=== PATIENT | male | born 1930 | race Caucasian/White ===

== ENCOUNTER 2016-12-29 08:56 | Inpatient (IN) | payer MEDICARE, OTHER ==
[~2016-12-29] VITALS: Ht 185.4 cm; Wt 71.9 kg
[~2016-12-29 08:56] MED LIST: ATEN-60 OR; DILT-11 OR; DILT120C45 OR; HYDR25TA4 OR; SIMV10TA73 OR
[2016-12-29 10:12] LABS: Basophils # (auto) 0 uL; Basophils % (auto) 0.2 % (0.0-2.0); CONDITION Y; Eosinophils # (auto) 0.1 uL; Eosinophils % (auto) 0.5 % (0.0-7.0); Hematocrit 36.7 % (41.0-53.0); Hemoglobin 12.4 g/dL (13.5-17.5); Lymphocytes # (auto) 0.5 uL; Lymphocytes % (auto) 4.6 % (10.0-50.0); Mean Corpuscular Hemoglobin 33.3 pg (28.0-32.0); Mean Corpuscular Hgb Conc. 33.7 g/dL (32.0-36.0); Mean Corpuscular Volume 98.8 fL (80.0-100.0); Mean Platelet Volume 6.8 fL (7.4-10.4); Monocytes # (auto) 0.6 uL; Monocytes % (auto) 6.1 % (0.0-12.0); Neutrophils % (auto) 88.6 % (37.0-80.0); Platelet Count (auto) 221 10^3/uL (140-450); Red Cell Distribution Width 15.6 % (11.6-16.0); White Blood Cell 10.1 10^3/uL (4.4-10.8)
[2016-12-29 10:27] LABS: Albumin 2.4 g/dL (3.4-5.0); BUN/Creatinine Ratio 21.2; Calcium 8.6 mg/dL (8.5-10.1)
[2016-12-29] MEDS ORDERED: SODIUM CHLORIDE 0.9% 1,000 ML IVB ONE (10:31)
[2016-12-29 10:32] LABS: Bilirubin, Total 0.6 mg/dL (0.2-1.0); Total Protein 6.4 g/dL (6.4-8.2)
[2016-12-29 11:30] LABS: Magnesium 2.3 mg/dL (1.6-2.6)
[2016-12-29 11:38] LABS: Lactic Acid w/Reflex 2.2 mmol/L (0.4-2.0)
[2016-12-29 12:00] LABS: REFLEX LACTIC ACID YES OR NO YES
[2016-12-29 12:06] LABS: INR 1.05 (0.9-1.15)
[2016-12-29] MEDS ORDERED: SODIUM CHLORIDE 0.9% 1,000 ML IV SCH ×2 (12:14→19:00)
[2016-12-29] MEDS ORDERED: LORazepam 2MG/ML-1ML VIAL IV PRN (12:15)
[2016-12-29] MEDS ORDERED: LEVETIRACETAM 500 MG TAB PO ONE (12:15)
[2016-12-29] MEDS ORDERED: HYDROcodone-ACET 5/325MG TAB PO PRN (12:15)
[2016-12-29] MEDS ORDERED: LACTULOSE 20Gm/30ML SOLN PO PRN ×2 (12:15)
[2016-12-29] MEDS ORDERED: SODIUM CHLORIDE 0.9% 1,000 ML IV ONE (12:15)
[2016-12-29] MEDS ORDERED: ACETAMINOPHEN 500 MG TAB PO PRN (12:15)
[2016-12-29] MEDS ORDERED: cefTRIAXone 1GM/50ML D5W 50 ML IV ONE ×4 (12:15→15:00)
[2016-12-29] MEDS ORDERED: NITROGLYCERIN 0.4 MG SL TAB SL PRN ×2 (12:15→14:00)
[2016-12-29] MEDS ORDERED: TEMAZEPAM 15 MG CAP PO PRN (12:15)
[2016-12-29] MEDS ORDERED: MORPHINE SULF INJ 2 MG/ML SYRINGE 1ML IV PRN ×3 (12:15→14:00)
[2016-12-29] MEDS ORDERED: ALBUTEROL SULF 2.5 MG/0.5ML(0.5%) NEB SOLN NEB PRN (12:15)
[2016-12-29] MEDS ORDERED: LORazepam 0.5 MG TAB PO PRN (12:15)
[2016-12-29] MEDS ORDERED: PROMETHAZINE HCL 25 MG/ML 1ML IV PRN (12:15)
[2016-12-29] MEDS ORDERED: AZITHROMYCIN 500MG/D5W 250ML 250 ML IV ONE ×2 (13:15→15:00)
[2016-12-29] MEDS ORDERED: ACETAMINOPHEN 325 MG TAB PO PRN (14:15)
[2016-12-29] MEDS ORDERED: ONDANSETRON HCL 4 MG/2 ML VIAL IV PRN (14:15)
[2016-12-29 14:27] VITALS: BP 113/69
[2016-12-29] MEDS ORDERED: LIDOCAINE 2% JELLY 11ml (GLYDO) ONE (14:35)
[2016-12-29] MEDS ORDERED: METOPROLOL SUCCINATE XL 50 MG TAB PO ONE (14:45)
[2016-12-29] MEDS ORDERED: ENOXAPARIN SOD 80 MG/0.8ML SYRINGE SC ONE (14:45)
[2016-12-29] MEDS ORDERED: PANTOPRAZOLE 40 MG TAB PO ONE (14:45)
[2016-12-29] MEDS ORDERED: ASPirin 81 mg TAB PO ONE (14:45)
[2016-12-29] MEDS: SODIUM CHLORIDE 0.9% 1,000 ML IV SCH (14:53)
[2016-12-29] MEDS ORDERED: LIDOCAINE 2% JELLY 11ml (GLYDO) UR ONE (15:00)
[2016-12-29] MEDS ORDERED: IOHEXOL 350 MG/ML 100ML IJ ONE (15:03)
[2016-12-29] MEDS ORDERED: ALBUTEROL SULF 2.5 MG/0.5ML(0.5%) NEB SOLN NEB SCH (18:00)
[2016-12-29] MEDS ORDERED: CARBIDOPA W LEVODOPA 25/100mg TABLET PO SCH (18:00)
[2016-12-29] MEDS: RIVAROXABAN 15 MG TAB PO SCH (19:25)
[2016-12-29 21:00] VITALS: BP 100/59
[2016-12-29 22:00] VITALS: BP 100/59
[2016-12-29] MEDS ORDERED: ATORVASTATIN 20 MG TAB PO SCH (22:00)
[2016-12-29] MEDS ORDERED: SIMVASTATIN 10 MG OR SCH (22:00)
[2016-12-29] MEDS ORDERED: CARVEDILOL 3.125 MG TAB PO SCH (22:00)
[2016-12-29] MEDS ORDERED: ENOXAPARIN SOD 80 MG/0.8ML SYRINGE SC SCH (22:00)
[2016-12-29] MEDS ORDERED: LEVETIRACETAM 500 MG TAB PO SCH (22:00)
[2016-12-29] MEDS: AMIODARONE HCL 200 MG TAB PO SCH (22:26)
[2016-12-29] MEDS: CARBIDOPA W LEVODOPA 25/100mg TABLET PO SCH (22:27)
[2016-12-29 23:05] LABS: Temperature: 23.7 C (20.0-25.0)
[2016-12-30] MEDS ORDERED: METO25TA62 PO (02:54)
[2016-12-30] MEDS: SODIUM CHLORIDE 0.9% 1,000 ML IV SCH ×2 (04:18→18:36)
[2016-12-30 05:00] VITALS: BP 109/70
[2016-12-30] MEDS: CARBIDOPA W LEVODOPA 25/100mg TABLET PO SCH ×3 (06:14→21:55)
[2016-12-30 06:48] LABS: Basophils # (auto) 0 uL; Basophils % (auto) 0.2 % (0.0-2.0); CONDITION Y; Eosinophils # (auto) 0.1 uL; Eosinophils % (auto) 1.3 % (0.0-7.0); Hematocrit 30.4 % (41.0-53.0); Hemoglobin 10.2 g/dL (13.5-17.5); Lymphocytes # (auto) 0.9 uL; Lymphocytes % (auto) 13.1 % (10.0-50.0); Mean Corpuscular Hemoglobin 33.4 pg (28.0-32.0); Mean Corpuscular Hgb Conc. 33.7 g/dL (32.0-36.0); Mean Corpuscular Volume 99.3 fL (80.0-100.0); Mean Platelet Volume 7.5 fL (7.4-10.4); Monocytes # (auto) 0.6 uL; Monocytes % (auto) 8.7 % (0.0-12.0); Neutrophils # (auto) 5.2 uL; Neutrophils % (auto) 76.7 % (37.0-80.0); Platelet Count (auto) 183 10^3/uL (140-450); Red Cell Distribution Width 15.9 % (11.6-16.0); White Blood Cell 6.7 10^3/uL (4.4-10.8)
[2016-12-30 07:17] LABS: BUN/Creatinine Ratio 22.8; Bilirubin, Total 0.3 mg/dL (0.2-1.0); Calcium 8.1 mg/dL (8.5-10.1); Potassium 4.6 mmol/L (3.5-5.1); Total Protein 5.6 g/dL (6.4-8.2)
[2016-12-30 08:29] LABS: Vitamin B12 400 pg/mL (211-911)
[2016-12-30] MEDS: cefTRIAXone 1GM/50ML D5W 50 ML IV SCH (08:57)
[2016-12-30] MEDS: RIVAROXABAN 15 MG TAB PO SCH ×2 (08:57→17:17)
[2016-12-30 09:00] VITALS: BP 117/69
[2016-12-30] MEDS ORDERED: cefTRIAXone 1GM/50ML D5W 50 ML IV SCH (09:00)
[2016-12-30] MEDS: PANTOPRAZOLE 40 MG TAB PO SCH (09:57)
[2016-12-30] MEDS: METOPROLOL SUCCINATE XL 50 MG TAB PO SCH (09:57)
[2016-12-30] MEDS: AMIODARONE HCL 200 MG TAB PO SCH ×2 (09:57→21:55)
[2016-12-30] MEDS ORDERED: PANTOPRAZOLE 40 MG TAB PO SCH (10:00)
[2016-12-30] MEDS ORDERED: ASPirin 81 mg TAB PO SCH ×2 (10:00)
[2016-12-30] MEDS ORDERED: AZITHROMYCIN 500MG/D5W 250ML 250 ML IV SCH (10:00)
[2016-12-30] MEDS ORDERED: ENOXAPARIN SOD 40 MG/0.4 ML SYRINGE SC SCH (10:00)
[2016-12-30 13:00] VITALS: BP 114/71
[2016-12-30 17:00] VITALS: BP 119/70
[2016-12-30 20:00] VITALS: BP 117/69
[2016-12-30 21:30] VITALS: BP 128/73
[2016-12-31 05:00] VITALS: BP 124/74
[2016-12-31 05:16] LABS: Basophils # (auto) 0 uL; Basophils % (auto) 0.3 % (0.0-2.0); CONDITION Y; Eosinophils # (auto) 0.1 uL; Eosinophils % (auto) 1.7 % (0.0-7.0); Hemoglobin 9.9 g/dL (13.5-17.5); Lymphocytes # (auto) 0.7 uL; Lymphocytes % (auto) 11.8 % (10.0-50.0); Mean Corpuscular Hgb Conc. 32.9 g/dL (32.0-36.0); Mean Corpuscular Volume 100.3 fL (80.0-100.0); Mean Platelet Volume 7.4 fL (7.4-10.4); Monocytes # (auto) 0.6 uL; Monocytes % (auto) 9.1 % (0.0-12.0); Neutrophils # (auto) 4.8 uL; Neutrophils % (auto) 77.1 % (37.0-80.0); Platelet Count (auto) 202 10^3/uL (140-450); Red Cell Distribution Width 15.8 % (11.6-16.0); White Blood Cell 6.3 10^3/uL (4.4-10.8)
[2016-12-31 05:50] LABS: Albumin 1.9 g/dL (3.4-5.0); Alkaline Phosphatase 88 U/L (45-117); Anion Gap 8 (5-15); Aspartate Aminotransferase 21 U/L (15-37); BUN/Creatinine Ratio 23.5; Bilirubin, Total 0.2 mg/dL (0.2-1.0); Blood Urea Nitrogen 19 mg/dL (7-18); Calcium 7.9 mg/dL (8.5-10.1); Carbon Dioxide 23 mmol/L (21-32); Chloride 106 mmol/L (98-107); GFR African American 116 mL/min; GFR Non-African American 96 mL/min; Glucose 89 mg/dL (74-106); Potassium 3.8 mmol/L (3.5-5.1); Sodium 137 mmol/L (136-145); Total Protein 5.3 g/dL (6.4-8.2)
[2016-12-31] MEDS: CARBIDOPA W LEVODOPA 25/100mg TABLET PO SCH ×3 (06:03→21:51)
[2016-12-31 09:00] VITALS: BP 116/68
[2016-12-31] MEDS: RASAGILINE MESYLATE 0.5 MG PO SCH (10:00)
[2016-12-31] MEDS ORDERED: AZILECT 0.5 MG PO SCH (10:00)
[2016-12-31] MEDS: RIVAROXABAN 15 MG TAB PO SCH ×2 (10:03→17:41)
[2016-12-31] MEDS: cefTRIAXone 1GM/50ML D5W 50 ML IV SCH (10:08)
[2016-12-31] MEDS: PANTOPRAZOLE 40 MG TAB PO SCH (10:09)
[2016-12-31] MEDS: AMIODARONE HCL 200 MG TAB PO SCH ×2 (10:09→21:52)
[2016-12-31] MEDS: METOPROLOL SUCCINATE XL 50 MG TAB PO SCH (10:11)
[2016-12-31 12:48] VITALS: BP 107/67
[2016-12-31] MEDS: SODIUM CHLORIDE 0.9% 1,000 ML IV SCH (15:00)
[2016-12-31 17:03] VITALS: BP 102/59
[2016-12-31 21:46] VITALS: BP 123/70
[2017-01-01 05:10] VITALS: BP 123/69
[2017-01-01 05:44] LABS: Basophils # (auto) 0 uL; Basophils % (auto) 0.5 % (0.0-2.0); CONDITION Y; Eosinophils # (auto) 0.1 uL; Eosinophils % (auto) 2.2 % (0.0-7.0); Hematocrit 28.6 % (41.0-53.0); Hemoglobin 9.4 g/dL (13.5-17.5); Lymphocytes # (auto) 0.8 uL; Lymphocytes % (auto) 14.9 % (10.0-50.0); Mean Corpuscular Volume 99.8 fL (80.0-100.0); Mean Platelet Volume 7.4 fL (7.4-10.4); Monocytes # (auto) 0.5 uL; Monocytes % (auto) 8.6 % (0.0-12.0); Neutrophils # (auto) 4.2 uL; Neutrophils % (auto) 73.8 % (37.0-80.0); Platelet Count (auto) 240 10^3/uL (140-450); Red Cell Distribution Width 15.7 % (11.6-16.0); White Blood Cell 5.7 10^3/uL (4.4-10.8)
[2017-01-01 05:54] LABS: Albumin 1.9 g/dL (3.4-5.0); Calcium 8.2 mg/dL (8.5-10.1); Potassium 4.2 mmol/L (3.5-5.1)
[2017-01-01 05:56] LABS: Bilirubin, Total 0.2 mg/dL (0.2-1.0); Total Protein 5.3 g/dL (6.4-8.2)
[2017-01-01] MEDS: CARBIDOPA W LEVODOPA 25/100mg TABLET PO SCH ×3 (06:26→21:45)
[2017-01-01 07:33] VITALS: BP_SYST 130; BP_SYST 139; BP_DIAS 65; BP_DIAS 70
[2017-01-01] MEDS: RIVAROXABAN 15 MG TAB PO SCH ×2 (08:40→17:49)
[2017-01-01] MEDS: cefTRIAXone 1GM/50ML D5W 50 ML IV SCH (08:41)
[2017-01-01] MEDS: RASAGILINE MESYLATE 0.5 MG PO SCH (10:00)
[2017-01-01] MEDS: PANTOPRAZOLE 40 MG TAB PO SCH (10:08)
[2017-01-01] MEDS: METOPROLOL SUCCINATE XL 50 MG TAB PO SCH (10:09)
[2017-01-01] MEDS: AMIODARONE HCL 200 MG TAB PO SCH ×2 (10:09→21:45)
[2017-01-01 11:46] VITALS: BP 104/51
[2017-01-01 17:00] VITALS: BP 112/63
[2017-01-01 22:18] VITALS: BP 100/53
[2017-01-02 05:32] VITALS: BP 123/65
[2017-01-02 05:45] LABS: Basophils # (auto) 0 uL; Basophils % (auto) 0.6 % (0.0-2.0); CONDITION Y; Eosinophils # (auto) 0.1 uL; Hematocrit 26.9 % (41.0-53.0); Hemoglobin 9.1 g/dL (13.5-17.5); Lymphocytes # (auto) 0.7 uL; Lymphocytes % (auto) 11.3 % (10.0-50.0); Mean Corpuscular Hemoglobin 33.1 pg (28.0-32.0); Mean Corpuscular Hgb Conc. 33.6 g/dL (32.0-36.0); Mean Corpuscular Volume 98.6 fL (80.0-100.0); Mean Platelet Volume 7.2 fL (7.4-10.4); Monocytes # (auto) 0.6 uL; Monocytes % (auto) 9.2 % (0.0-12.0); Neutrophils # (auto) 4.8 uL; Neutrophils % (auto) 76.9 % (37.0-80.0); Platelet Count (auto) 307 10^3/uL (140-450); Red Cell Distribution Width 15.5 % (11.6-16.0); White Blood Cell 6.2 10^3/uL (4.4-10.8)
[2017-01-02] MEDS: CARBIDOPA W LEVODOPA 25/100mg TABLET PO SCH ×3 (05:57→21:39)
[2017-01-02 06:04] LABS: BUN/Creatinine Ratio 17.8; Calcium 7.8 mg/dL (8.5-10.1); Potassium 4.1 mmol/L (3.5-5.1)
[2017-01-02 08:00] VITALS: BP 117/61
[2017-01-02] MEDS: cefTRIAXone 1GM/50ML D5W 50 ML IV SCH (08:36)
[2017-01-02] MEDS: RIVAROXABAN 15 MG TAB PO SCH ×2 (08:36→18:11)
[2017-01-02] MEDS: PANTOPRAZOLE 40 MG TAB PO SCH (09:44)
[2017-01-02] MEDS: AMIODARONE HCL 200 MG TAB PO SCH ×2 (09:44→21:39)
[2017-01-02] MEDS: METOPROLOL SUCCINATE XL 50 MG TAB PO SCH (09:45)
[2017-01-02] MEDS: RASAGILINE MESYLATE 0.5 MG PO SCH (10:00)
[2017-01-02 12:00] VITALS: BP 90/59
[2017-01-02 16:59] VITALS: BP 126/64
[2017-01-02 22:00] VITALS: BP 114/60
[2017-01-03 05:00] VITALS: BP 111/64
[2017-01-03 05:31] LABS: Basophils # (auto) 0 uL; Basophils % (auto) 0.4 % (0.0-2.0); CONDITION Y; Eosinophils # (auto) 0.2 uL; Eosinophils % (auto) 3.5 % (0.0-7.0); Hemoglobin 8.5 g/dL (13.5-17.5); Lymphocytes % (auto) 16.7 % (10.0-50.0); Mean Corpuscular Hemoglobin 33.5 pg (28.0-32.0); Mean Corpuscular Volume 98.3 fL (80.0-100.0); Mean Platelet Volume 6.7 fL (7.4-10.4); Monocytes # (auto) 0.5 uL; Monocytes % (auto) 8.3 % (0.0-12.0); Neutrophils # (auto) 4.3 uL; Neutrophils % (auto) 71.1 % (37.0-80.0); Platelet Count (auto) 375 10^3/uL (140-450); Red Cell Distribution Width 15.1 % (11.6-16.0)
[2017-01-03 05:48] LABS: Albumin 2.1 g/dL (3.4-5.0); Calcium 8.3 mg/dL (8.5-10.1); Potassium 4.3 mmol/L (3.5-5.1)
[2017-01-03 05:50] LABS: BUN/Creatinine Ratio 21.8
[2017-01-03 05:52] LABS: Bilirubin, Total 0.2 mg/dL (0.2-1.0); Total Protein 5.6 g/dL (6.4-8.2)
[2017-01-03] MEDS: CARBIDOPA W LEVODOPA 25/100mg TABLET PO SCH ×3 (05:54→22:35)
[2017-01-03 08:00] VITALS: BP 112/62
[2017-01-03] MEDS: cefTRIAXone 1GM/50ML D5W 50 ML IV SCH (08:09)
[2017-01-03] MEDS: RIVAROXABAN 15 MG TAB PO SCH ×2 (08:09→18:22)
[2017-01-03 08:10] VITALS: BP 112/60
[2017-01-03] MEDS: RASAGILINE MESYLATE 0.5 MG PO SCH (10:00)
[2017-01-03] MEDS: METOPROLOL SUCCINATE XL 50 MG TAB PO SCH (10:10)
[2017-01-03] MEDS: AMIODARONE HCL 200 MG TAB PO SCH ×2 (10:10→22:35)
[2017-01-03] MEDS: PANTOPRAZOLE 40 MG TAB PO SCH (10:10)
[2017-01-03] MEDS: SODIUM CHLORIDE 0.9% IR SCH ×3 (11:57→14:24)
[2017-01-03] MEDS: AMINOCAPROIC ACID IR SCH ×3 (11:57→14:24)
[2017-01-03 12:35] VITALS: BP 110/63
[2017-01-03 15:57] VITALS: BP 106/64
[2017-01-03 22:00] VITALS: BP 116/64
[2017-01-04] VITALS (14 sets, daily range): BP systolic 93–123; BP diastolic 47–64
[2017-01-04] MEDS: CARBIDOPA W LEVODOPA 25/100mg TABLET PO SCH ×3 (06:01→22:35)
[2017-01-04 06:28] LABS: Basophils # (auto) 0 uL; Basophils % (auto) 0.7 % (0.0-2.0); CONDITION Y; DEFINITIVE SEE PRINTOUT; Eosinophils # (auto) 0.3 uL; Eosinophils % (auto) 4.3 % (0.0-7.0); Hematocrit 20.8 % (41.0-53.0); Hemoglobin 7.2 g/dL (13.5-17.5); Lymphocytes # (auto) 0.9 uL; Lymphocytes % (auto) 13.6 % (10.0-50.0); Mean Corpuscular Hemoglobin 33.7 pg (28.0-32.0); Mean Corpuscular Hgb Conc. 34.4 g/dL (32.0-36.0); Mean Platelet Volume 6.6 fL (7.4-10.4); Monocytes # (auto) 0.6 uL; Monocytes % (auto) 8.6 % (0.0-12.0); Neutrophils # (auto) 4.8 uL; Neutrophils % (auto) 72.8 % (37.0-80.0); Platelet Count (auto) 379 10^3/uL (140-450); Red Cell Distribution Width 15.1 % (11.6-16.0); White Blood Cell 6.6 10^3/uL (4.4-10.8)
[2017-01-04 06:56] LABS: Albumin 2.1 g/dL (3.4-5.0); Calcium 8.4 mg/dL (8.5-10.1); Potassium 4.1 mmol/L (3.5-5.1)
[2017-01-04 06:58] LABS: BUN/Creatinine Ratio 29.5
[2017-01-04 07:01] LABS: Bilirubin, Total 0.2 mg/dL (0.2-1.0); Total Protein 5.3 g/dL (6.4-8.2)
[2017-01-04] MEDS: RIVAROXABAN 15 MG TAB PO SCH (08:30)
[2017-01-04] MEDS: RASAGILINE MESYLATE 0.5 MG PO SCH (10:00)
[2017-01-04] MEDS: AMINOCAPROIC ACID IR SCH ×9 (10:04→22:35)
[2017-01-04] MEDS: SODIUM CHLORIDE 0.9% IR SCH ×9 (10:04→22:35)
[2017-01-04] MEDS: PANTOPRAZOLE 40 MG TAB PO SCH (10:17)
[2017-01-04] MEDS: FINASTERIDE 5 MG TAB PO SCH (10:17)
[2017-01-04] MEDS: AMIODARONE HCL 200 MG TAB PO SCH ×2 (10:17→22:35)
[2017-01-04] MEDS: METOPROLOL SUCCINATE XL 50 MG TAB PO SCH (10:18)
[2017-01-04] MEDS ORDERED: HEPARIN DRIP/D5W 100UNITS/ML 250 ML IV SCH (11:10)
[2017-01-04] MEDS ORDERED: HEPARIN SODIUM (PORCINE) 5000 UNITS/ML 1ML VIAL IV ONE (11:15)
[2017-01-04] MEDS ORDERED: FUROSEMIDE 20 MG/2 ML VIAL IV ONE (12:00)
[2017-01-04 12:34] LABS: INR 1.49 (0.9-1.15); Partial Thromboplastin Time 36.6 sec (22.64-33.71); Prothrombin Time 16.3 sec (9.37-12.3)
[2017-01-04] MEDS ORDERED: MULTIPLE VITAMIN TAB PO ONE (13:30)
[2017-01-04] MEDS ORDERED: ASCORBIC ACID 500 MG TAB PO ONE (13:30)
[2017-01-04] MEDS: PRO-STAT 64 30ML PO SCH (18:11)
[2017-01-04] MEDS: ASCORBIC ACID 500 MG TAB PO SCH (22:35)
[2017-01-05] VITALS (7 sets, daily range): BP systolic 101–117; BP diastolic 50–70
[2017-01-05] MEDS: SODIUM CHLORIDE 0.9% IR SCH ×17 (01:30→21:32)
[2017-01-05] MEDS: AMINOCAPROIC ACID IR SCH ×17 (01:30→21:32)
[2017-01-05 05:56] LABS: Albumin 2.1 g/dL (3.4-5.0); Calcium 8.1 mg/dL (8.5-10.1); Potassium 3.9 mmol/L (3.5-5.1)
[2017-01-05 05:59] LABS: BUN/Creatinine Ratio 31.5; Basophils # (auto) 0 uL; Basophils % (auto) 0.7 % (0.0-2.0); CONDITION Y; Eosinophils # (auto) 0.2 uL; Eosinophils % (auto) 3.4 % (0.0-7.0); Hematocrit 24.5 % (41.0-53.0); Hemoglobin 8.5 g/dL (13.5-17.5); Lymphocytes % (auto) 16.7 % (10.0-50.0); Mean Corpuscular Hemoglobin 32.2 pg (28.0-32.0); Mean Corpuscular Hgb Conc. 34.7 g/dL (32.0-36.0); Mean Corpuscular Volume 93.1 fL (80.0-100.0); Mean Platelet Volume 7.1 fL (7.4-10.4); Monocytes # (auto) 0.5 uL; Monocytes % (auto) 8.3 % (0.0-12.0); Neutrophils # (auto) 4.1 uL; Neutrophils % (auto) 70.9 % (37.0-80.0); Platelet Count (auto) 386 10^3/uL (140-450); Red Cell Distribution Width 16.8 % (11.6-16.0); White Blood Cell 5.8 10^3/uL (4.4-10.8)
[2017-01-05 06:01] LABS: Bilirubin, Total 0.4 mg/dL (0.2-1.0); INR 1.14 (0.9-1.15); Prothrombin Time 12.4 sec (9.37-12.3); Total Protein 5.3 g/dL (6.4-8.2)
[2017-01-05 06:20] LABS: Partial Thromboplastin Time 73.1 sec (22.64-33.71)
[2017-01-05] MEDS ORDERED: HEPARIN DRIP/D5W 100UNITS/ML 250 ML IV SCH (06:30)
[2017-01-05] MEDS: CARBIDOPA W LEVODOPA 25/100mg TABLET PO SCH ×3 (06:32→22:04)
[2017-01-05] MEDS: PRO-STAT 64 30ML PO SCH ×2 (08:16→17:40)
[2017-01-05] MEDS: ASCORBIC ACID 500 MG TAB PO SCH ×2 (09:15→22:04)
[2017-01-05] MEDS: PANTOPRAZOLE 40 MG TAB PO SCH (09:15)
[2017-01-05] MEDS: AMIODARONE HCL 200 MG TAB PO SCH ×2 (09:16→22:04)
[2017-01-05] MEDS: MULTIPLE VITAMIN TAB PO SCH (09:16)
[2017-01-05] MEDS: METOPROLOL SUCCINATE XL 50 MG TAB PO SCH (09:17)
[2017-01-05] MEDS: FINASTERIDE 5 MG TAB PO SCH (09:17)
[2017-01-05] MEDS: RASAGILINE MESYLATE 0.5 MG PO SCH (09:21)
[2017-01-05 11:26] LABS: INR 1.12 (0.9-1.15); Partial Thromboplastin Time 63.9 sec (22.64-33.71); Prothrombin Time 12.2 sec (9.37-12.3)
[2017-01-05] MEDS: Boost Glucose Control 8 Ounces PO SCH (17:40)
[2017-01-05 18:59] LABS: INR 1.01 (0.9-1.15); Partial Thromboplastin Time 59.9 sec (22.64-33.71)
[2017-01-05] MEDS ORDERED: DOCUSATE SOD 100 MG CAP PO ONE (20:15)
[2017-01-06] VITALS (13 sets, daily range): BP systolic 101–123; BP diastolic 44–64
[2017-01-06] MEDS: SODIUM CHLORIDE 0.9% IR SCH ×8 (00:13→14:58)
[2017-01-06] MEDS: AMINOCAPROIC ACID IR SCH ×15 (00:13→23:00)
[2017-01-06] MEDS: CARBIDOPA W LEVODOPA 25/100mg TABLET PO SCH ×3 (06:07→21:00)
[2017-01-06 06:15] LABS: Basophils # (auto) 0.1 uL; CONDITION Y; DEFINITIVE SEE PRINTOUT; Eosinophils # (auto) 0.2 uL; Eosinophils % (auto) 3.3 % (0.0-7.0); Hematocrit 19.9 % (41.0-53.0); Lymphocytes # (auto) 1.2 uL; Lymphocytes % (auto) 18.3 % (10.0-50.0); Mean Corpuscular Hemoglobin 32.2 pg (28.0-32.0); Mean Corpuscular Hgb Conc. 33.6 g/dL (32.0-36.0); Mean Corpuscular Volume 95.8 fL (80.0-100.0); Mean Platelet Volume 7.2 fL (7.4-10.4); Monocytes # (auto) 0.5 uL; Monocytes % (auto) 8.1 % (0.0-12.0); Neutrophils # (auto) 4.4 uL; Neutrophils % (auto) 69.3 % (37.0-80.0); Platelet Count (auto) 380 10^3/uL (140-450); Red Cell Distribution Width 16.5 % (11.6-16.0); White Blood Cell 6.4 10^3/uL (4.4-10.8)
[2017-01-06 06:25] LABS: INR 0.99 (0.9-1.15); Partial Thromboplastin Time 66.3 sec (22.64-33.71); Prothrombin Time 10.8 sec (9.37-12.3)
[2017-01-06 06:39] LABS: Hemoglobin 6.7 g/dL (13.5-17.5)
[2017-01-06 06:43] LABS: Albumin 2.1 g/dL (3.4-5.0); Calcium 8.1 mg/dL (8.5-10.1); Potassium 3.9 mmol/L (3.5-5.1)
[2017-01-06 06:50] LABS: BUN/Creatinine Ratio 27.5; Bilirubin, Total 0.2 mg/dL (0.2-1.0)
[2017-01-06] MEDS: METOPROLOL SUCCINATE XL 50 MG TAB PO SCH (10:00)
[2017-01-06] MEDS: RASAGILINE MESYLATE 0.5 MG PO SCH (10:00)
[2017-01-06] MEDS: DOCUSATE SOD 100 MG CAP PO SCH ×2 (10:18→20:58)
[2017-01-06] MEDS: AMIODARONE HCL 200 MG TAB PO SCH ×2 (10:18→21:00)
[2017-01-06] MEDS: ASCORBIC ACID 500 MG TAB PO SCH ×2 (10:18→21:00)
[2017-01-06] MEDS: MULTIPLE VITAMIN TAB PO SCH (10:19)
[2017-01-06] MEDS: PANTOPRAZOLE 40 MG TAB PO SCH (10:19)
[2017-01-06] MEDS: FINASTERIDE 5 MG TAB PO SCH (10:19)
[2017-01-06] MEDS: Boost Glucose Control 8 Ounces PO SCH ×2 (10:25→18:24)
[2017-01-06] MEDS: PRO-STAT 64 30ML PO SCH ×2 (10:25→18:24)
[2017-01-06] MEDS: SODIUM CHLORIDE IRRIGATION IR SCH ×7 (14:59→23:00)
[2017-01-06] MEDS: HEPARIN DRIP/D5W 100UNITS/ML 250 ML IV SCH (21:00)
[2017-01-07] MEDS: SODIUM CHLORIDE IRRIGATION IR SCH ×12 (01:00→23:00)
[2017-01-07] MEDS: AMINOCAPROIC ACID IR SCH ×12 (01:00→23:00)
[2017-01-07 05:14] VITALS: BP 121/59
[2017-01-07 06:14] LABS: Basophils # (auto) 0.1 uL; Basophils % (auto) 0.8 % (0.0-2.0); CONDITION Y; Eosinophils # (auto) 0.2 uL; Eosinophils % (auto) 3.2 % (0.0-7.0); Hematocrit 25.2 % (41.0-53.0); Hemoglobin 8.6 g/dL (13.5-17.5); Lymphocytes # (auto) 1.3 uL; Lymphocytes % (auto) 20.5 % (10.0-50.0); Mean Corpuscular Hemoglobin 31.5 pg (28.0-32.0); Mean Corpuscular Hgb Conc. 33.9 g/dL (32.0-36.0); Mean Corpuscular Volume 92.7 fL (80.0-100.0); Mean Platelet Volume 7.3 fL (7.4-10.4); Monocytes # (auto) 0.5 uL; Monocytes % (auto) 8.4 % (0.0-12.0); Neutrophils # (auto) 4.2 uL; Neutrophils % (auto) 67.1 % (37.0-80.0); Platelet Count (auto) 378 10^3/uL (140-450); Red Cell Distribution Width 15.9 % (11.6-16.0); White Blood Cell 6.3 10^3/uL (4.4-10.8)
[2017-01-07 06:17] LABS: INR 0.98 (0.9-1.15); Partial Thromboplastin Time 49.4 sec (22.64-33.71); Prothrombin Time 10.7 sec (9.37-12.3)
[2017-01-07] MEDS: CARBIDOPA W LEVODOPA 25/100mg TABLET PO SCH ×3 (06:24→21:30)
[2017-01-07 06:43] LABS: Albumin 2.1 g/dL (3.4-5.0); BUN/Creatinine Ratio 28.7
[2017-01-07 06:45] LABS: Bilirubin, Total 0.5 mg/dL (0.2-1.0); Total Protein 5.1 g/dL (6.4-8.2)
[2017-01-07 07:30] VITALS: BP 103/52
[2017-01-07 08:25] VITALS: BP 107/53
[2017-01-07] MEDS: METOPROLOL SUCCINATE XL 50 MG TAB PO SCH (09:06)
[2017-01-07] MEDS: FINASTERIDE 5 MG TAB PO SCH (09:07)
[2017-01-07] MEDS: PANTOPRAZOLE 40 MG TAB PO SCH (09:07)
[2017-01-07] MEDS: MULTIPLE VITAMIN TAB PO SCH (09:07)
[2017-01-07] MEDS: ASCORBIC ACID 500 MG TAB PO SCH ×2 (09:07→21:30)
[2017-01-07] MEDS: AMIODARONE HCL 200 MG TAB PO SCH ×3 (09:07→21:32)
[2017-01-07] MEDS: Boost Glucose Control 8 Ounces PO SCH ×2 (09:08→17:31)
[2017-01-07] MEDS: DOCUSATE SOD 100 MG CAP PO SCH ×2 (09:08→21:32)
[2017-01-07] MEDS: PRO-STAT 64 30ML PO SCH ×2 (09:08→17:31)
[2017-01-07] MEDS: RASAGILINE MESYLATE 0.5 MG PO SCH (10:00)
[2017-01-07] MEDS ORDERED: [UNRECOGNIZED DRUG - OTHER] BLADIN SCH (11:00)
[2017-01-07 11:24] LABS: INR 0.96 (0.9-1.15); Partial Thromboplastin Time 31.5 sec (22.64-33.71); Prothrombin Time 10.5 sec (9.37-12.3)
[2017-01-07 12:30] VITALS: BP 107/58
[2017-01-07] MEDS: HEPARIN DRIP/D5W 100UNITS/ML 250 ML IV SCH (17:16)
[2017-01-07] MEDS ORDERED: HEPARIN SODIUM (PORCINE) 5000 UNITS/ML 1ML VIAL IV ONE (19:45)
[2017-01-07 21:14] VITALS: BP 111/58
[2017-01-08] MEDS: SODIUM CHLORIDE IRRIGATION IR SCH ×11 (01:00→23:10)
[2017-01-08] MEDS: AMINOCAPROIC ACID IR SCH ×11 (01:00→23:10)
[2017-01-08 05:16] VITALS: BP 100/54
[2017-01-08] MEDS: CARBIDOPA W LEVODOPA 25/100mg TABLET PO SCH ×3 (06:45→21:24)
[2017-01-08 06:51] LABS: Basophils # (auto) 0 uL; Basophils % (auto) 0.5 % (0.0-2.0); CONDITION Y; Eosinophils # (auto) 0.2 uL; Eosinophils % (auto) 2.4 % (0.0-7.0); Hematocrit 24.8 % (41.0-53.0); Hemoglobin 8.5 g/dL (13.5-17.5); Lymphocytes % (auto) 11.8 % (10.0-50.0); Mean Corpuscular Hemoglobin 32.1 pg (28.0-32.0); Mean Corpuscular Hgb Conc. 34.4 g/dL (32.0-36.0); Mean Corpuscular Volume 93.3 fL (80.0-100.0); Mean Platelet Volume 6.9 fL (7.4-10.4); Monocytes # (auto) 0.6 uL; Neutrophils # (auto) 6.7 uL; Neutrophils % (auto) 78.3 % (37.0-80.0); Platelet Count (auto) 426 10^3/uL (140-450); Red Cell Distribution Width 15.9 % (11.6-16.0); White Blood Cell 8.5 10^3/uL (4.4-10.8)
[2017-01-08 07:04] LABS: INR 1.01 (0.9-1.15)
[2017-01-08 07:10] LABS: Partial Thromboplastin Time 141.7 sec (22.64-33.71)
[2017-01-08] MEDS: HEPARIN DRIP/D5W 100UNITS/ML 250 ML IV SCH (07:12)
[2017-01-08 07:30] VITALS: BP 117/70
[2017-01-08] MEDS: Boost Glucose Control 8 Ounces PO SCH ×2 (08:00→18:54)
[2017-01-08 08:45] VITALS: BP 132/70
[2017-01-08] MEDS: DOCUSATE SOD 100 MG CAP PO SCH ×2 (10:00→21:24)
[2017-01-08] MEDS: RASAGILINE MESYLATE 0.5 MG PO SCH (10:00)
[2017-01-08] MEDS: METOPROLOL SUCCINATE XL 50 MG TAB PO SCH (10:19)
[2017-01-08] MEDS: FINASTERIDE 5 MG TAB PO SCH (10:19)
[2017-01-08] MEDS: PANTOPRAZOLE 40 MG TAB PO SCH (10:19)
[2017-01-08] MEDS: ASCORBIC ACID 500 MG TAB PO SCH ×2 (10:20→21:24)
[2017-01-08] MEDS: PRO-STAT 64 30ML PO SCH ×2 (10:20→18:54)
[2017-01-08] MEDS: MULTIPLE VITAMIN TAB PO SCH (10:20)
[2017-01-08 12:50] VITALS: BP 107/59
[2017-01-08 14:12] LABS: INR 0.98 (0.9-1.15); Partial Thromboplastin Time 66.2 sec (22.64-33.71); Prothrombin Time 10.7 sec (9.37-12.3)
[2017-01-08 16:24] VITALS: BP 120/46
[2017-01-08] MEDS: AMIODARONE HCL 200 MG TAB PO SCH (21:24)
[2017-01-08 21:36] VITALS: BP 106/51
[2017-01-09] MEDS: SODIUM CHLORIDE IRRIGATION IR SCH ×12 (00:27→23:14)
[2017-01-09] MEDS: AMINOCAPROIC ACID IR SCH ×12 (00:27→23:14)
[2017-01-09 02:45] LABS: Basophils # (auto) 0 uL; Basophils % (auto) 0.3 % (0.0-2.0); CONDITION Y; Eosinophils # (auto) 0.3 uL; Eosinophils % (auto) 3.1 % (0.0-7.0); Hematocrit 25.6 % (41.0-53.0); Hemoglobin 8.5 g/dL (13.5-17.5); Lymphocytes # (auto) 1.2 uL; Lymphocytes % (auto) 13.7 % (10.0-50.0); Mean Corpuscular Hemoglobin 31.6 pg (28.0-32.0); Mean Corpuscular Hgb Conc. 33.3 g/dL (32.0-36.0); Mean Corpuscular Volume 94.8 fL (80.0-100.0); Mean Platelet Volume 6.7 fL (7.4-10.4); Monocytes # (auto) 0.7 uL; Monocytes % (auto) 7.8 % (0.0-12.0); Neutrophils # (auto) 6.6 uL; Neutrophils % (auto) 75.1 % (37.0-80.0); Platelet Count (auto) 493 10^3/uL (140-450); Red Cell Distribution Width 16.4 % (11.6-16.0); White Blood Cell 8.8 10^3/uL (4.4-10.8)
[2017-01-09 03:05] LABS: Calcium 8.2 mg/dL (8.5-10.1); Potassium 4.2 mmol/L (3.5-5.1)
[2017-01-09] MEDS: CARBIDOPA W LEVODOPA 25/100mg TABLET PO SCH ×3 (05:24→21:57)
[2017-01-09 05:29] VITALS: BP 104/54
[2017-01-09 08:00] VITALS: BP 100/53
[2017-01-09] MEDS: PRO-STAT 64 30ML PO SCH ×2 (08:00→17:55)
[2017-01-09] MEDS: Boost Glucose Control 8 Ounces PO SCH ×2 (08:00→17:55)
[2017-01-09 08:26] VITALS: BP 100/53
[2017-01-09] MEDS: RASAGILINE MESYLATE 0.5 MG PO SCH (08:39)
[2017-01-09 08:50] LABS: INR 0.97 (0.9-1.15); Partial Thromboplastin Time 57.4 sec (22.64-33.71); Prothrombin Time 10.6 sec (9.37-12.3)
[2017-01-09] MEDS: FINASTERIDE 5 MG TAB PO SCH (11:02)
[2017-01-09] MEDS: DOCUSATE SOD 100 MG CAP PO SCH ×2 (11:02→21:56)
[2017-01-09] MEDS: AMIODARONE HCL 200 MG TAB PO SCH ×2 (11:02→21:57)
[2017-01-09] MEDS: ASCORBIC ACID 500 MG TAB PO SCH ×2 (11:03→21:57)
[2017-01-09] MEDS: MULTIPLE VITAMIN TAB PO SCH (11:03)
[2017-01-09] MEDS: PANTOPRAZOLE 40 MG TAB PO SCH (11:03)
[2017-01-09] MEDS: METOPROLOL SUCCINATE XL 50 MG TAB PO SCH (11:04)
[2017-01-09 12:13] VITALS: BP 115/59
[2017-01-09 17:02] VITALS: BP 122/67
[2017-01-09] MEDS: RIVAROXABAN 20 MG TAB PO SCH (17:55)
[2017-01-09 22:08] VITALS: BP 104/53
[2017-01-10] MEDS: SODIUM CHLORIDE IRRIGATION IR SCH ×8 (00:29→14:50)
[2017-01-10] MEDS: AMINOCAPROIC ACID IR SCH ×8 (00:29→14:50)
[2017-01-10] MEDS: CARBIDOPA W LEVODOPA 25/100mg TABLET PO SCH ×3 (05:51→21:45)
[2017-01-10 05:52] VITALS: BP 105/51
[2017-01-10 07:22] LABS: INR 0.95 (0.9-1.15); Partial Thromboplastin Time 25.5 sec (22.64-33.71); Prothrombin Time 10.4 sec (9.37-12.3)
[2017-01-10] MEDS: Boost Glucose Control 8 Ounces PO SCH ×2 (07:23→18:11)
[2017-01-10] MEDS: PRO-STAT 64 30ML PO SCH ×2 (07:23→18:11)
[2017-01-10 07:32] LABS: Albumin 2.3 g/dL (3.4-5.0); Calcium 8.4 mg/dL (8.5-10.1); Potassium 4.4 mmol/L (3.5-5.1)
[2017-01-10 07:35] LABS: BUN/Creatinine Ratio 21.6
[2017-01-10 07:37] LABS: Bilirubin, Total 0.2 mg/dL (0.2-1.0); Total Protein 5.7 g/dL (6.4-8.2)
[2017-01-10 07:39] LABS: Basophils # (auto) 0 uL; Basophils % (auto) 0.4 % (0.0-2.0); CONDITION Y; Eosinophils # (auto) 0.3 uL; Eosinophils % (auto) 3.7 % (0.0-7.0); Hematocrit 26.5 % (41.0-53.0); Hemoglobin 8.9 g/dL (13.5-17.5); Lymphocytes % (auto) 14.2 % (10.0-50.0); Mean Corpuscular Hemoglobin 31.8 pg (28.0-32.0); Mean Corpuscular Hgb Conc. 33.7 g/dL (32.0-36.0); Mean Corpuscular Volume 94.4 fL (80.0-100.0); Mean Platelet Volume 6.9 fL (7.4-10.4); Monocytes # (auto) 0.5 uL; Monocytes % (auto) 7.4 % (0.0-12.0); Neutrophils # (auto) 5.2 uL; Neutrophils % (auto) 74.3 % (37.0-80.0); Platelet Count (auto) 534 10^3/uL (140-450); Red Cell Distribution Width 16.5 % (11.6-16.0)
[2017-01-10 08:00] VITALS: BP 120/61
[2017-01-10 08:30] VITALS: BP 120/61
[2017-01-10] MEDS: RASAGILINE MESYLATE 0.5 MG PO SCH (10:00)
[2017-01-10] MEDS: DOCUSATE SOD 100 MG CAP PO SCH ×2 (10:02→21:45)
[2017-01-10] MEDS: ASCORBIC ACID 500 MG TAB PO SCH ×2 (10:02→21:45)
[2017-01-10] MEDS: MULTIPLE VITAMIN TAB PO SCH (10:02)
[2017-01-10] MEDS: AMIODARONE HCL 200 MG TAB PO SCH ×2 (10:02→21:45)
[2017-01-10] MEDS: FINASTERIDE 5 MG TAB PO SCH (10:02)
[2017-01-10] MEDS: PANTOPRAZOLE 40 MG TAB PO SCH (10:02)
[2017-01-10] MEDS: METOPROLOL SUCCINATE XL 50 MG TAB PO SCH (10:03)
[2017-01-10 12:48] VITALS: BP 114/61
[2017-01-10 16:40] VITALS: BP 110/60
[2017-01-10] MEDS: RIVAROXABAN 20 MG TAB PO SCH (18:11)
[2017-01-10 22:20] VITALS: BP 101/53
[2017-01-11] VITALS (7 sets, daily range): BP systolic 98–131; BP diastolic 39–64
[2017-01-11] MEDS: CARBIDOPA W LEVODOPA 25/100mg TABLET PO SCH ×3 (06:12→22:04)
[2017-01-11 06:21] LABS: Basophils # (auto) 0 uL; Basophils % (auto) 0.4 % (0.0-2.0); CONDITION Y; Eosinophils # (auto) 0.3 uL; Eosinophils % (auto) 2.8 % (0.0-7.0); Hematocrit 26.2 % (41.0-53.0); Hemoglobin 8.8 g/dL (13.5-17.5); Lymphocytes # (auto) 0.7 uL; Lymphocytes % (auto) 6.9 % (10.0-50.0); Mean Corpuscular Hemoglobin 31.8 pg (28.0-32.0); Mean Corpuscular Hgb Conc. 33.7 g/dL (32.0-36.0); Mean Corpuscular Volume 94.4 fL (80.0-100.0); Mean Platelet Volume 6.7 fL (7.4-10.4); Monocytes # (auto) 0.7 uL; Monocytes % (auto) 6.7 % (0.0-12.0); Neutrophils % (auto) 83.2 % (37.0-80.0); Platelet Count (auto) 503 10^3/uL (140-450); Red Cell Distribution Width 16.3 % (11.6-16.0); White Blood Cell 10.8 10^3/uL (4.4-10.8)
[2017-01-11 06:42] LABS: Albumin 2.4 g/dL (3.4-5.0); BUN/Creatinine Ratio 28.6; Bilirubin, Total 0.2 mg/dL (0.2-1.0); Calcium 8.8 mg/dL (8.5-10.1); Potassium 4.3 mmol/L (3.5-5.1); Total Protein 6.1 g/dL (6.4-8.2)
[2017-01-11] MEDS: PRO-STAT 64 30ML PO SCH ×2 (08:21→18:00)
[2017-01-11] MEDS: Boost Glucose Control 8 Ounces PO SCH ×2 (08:21→18:00)
[2017-01-11] MEDS: FINASTERIDE 5 MG TAB PO SCH (09:06)
[2017-01-11] MEDS: ASCORBIC ACID 500 MG TAB PO SCH ×2 (09:06→22:04)
[2017-01-11] MEDS: PANTOPRAZOLE 40 MG TAB PO SCH (09:07)
[2017-01-11] MEDS: AMIODARONE HCL 200 MG TAB PO SCH ×2 (09:07→22:03)
[2017-01-11] MEDS: DOCUSATE SOD 100 MG CAP PO SCH ×2 (09:07→22:03)
[2017-01-11] MEDS: MULTIPLE VITAMIN TAB PO SCH (09:07)
[2017-01-11] MEDS: RASAGILINE MESYLATE 0.5 MG PO SCH (09:08)
[2017-01-11] MEDS: METOPROLOL SUCCINATE XL 50 MG TAB PO SCH (09:09)
[2017-01-11] MEDS: RIVAROXABAN 20 MG TAB PO SCH (17:59)
[2017-01-11] MEDS: CARVEDILOL 3.125 MG TAB PO SCH (22:04)
[2017-01-12 05:00] VITALS: BP 109/54
[2017-01-12] MEDS: CARBIDOPA W LEVODOPA 25/100mg TABLET PO SCH ×3 (06:10→21:46)
[2017-01-12 06:18] LABS: Basophils # (auto) 0 uL; Basophils % (auto) 0.1 % (0.0-2.0); CONDITION Y; Eosinophils # (auto) 0.1 uL; Eosinophils % (auto) 0.6 % (0.0-7.0); Hematocrit 26.8 % (41.0-53.0); Hemoglobin 9.1 g/dL (13.5-17.5); Lymphocytes # (auto) 0.7 uL; Lymphocytes % (auto) 5.9 % (10.0-50.0); Mean Corpuscular Hgb Conc. 34.1 g/dL (32.0-36.0); Mean Corpuscular Volume 93.9 fL (80.0-100.0); Mean Platelet Volume 6.3 fL (7.4-10.4); Monocytes % (auto) 7.8 % (0.0-12.0); Neutrophils # (auto) 10.6 uL; Neutrophils % (auto) 85.6 % (37.0-80.0); Platelet Count (auto) 406 10^3/uL (140-450); Red Cell Distribution Width 15.8 % (11.6-16.0); White Blood Cell 12.4 10^3/uL (4.4-10.8)
[2017-01-12 06:33] LABS: Potassium 4.2 mmol/L (3.5-5.1)
[2017-01-12 06:40] LABS: BUN/Creatinine Ratio 22.7
[2017-01-12] MEDS: PRO-STAT 64 30ML PO SCH ×2 (08:00→18:00)
[2017-01-12] MEDS: Boost Glucose Control 8 Ounces PO SCH ×2 (08:00→18:00)
[2017-01-12 09:00] VITALS: BP 106/57
[2017-01-12] MEDS: RASAGILINE MESYLATE 0.5 MG PO SCH (10:00)
[2017-01-12] MEDS: CARVEDILOL 3.125 MG TAB PO SCH ×2 (10:00→22:00)
[2017-01-12] MEDS: MULTIPLE VITAMIN TAB PO SCH (11:40)
[2017-01-12] MEDS: PANTOPRAZOLE 40 MG TAB PO SCH (11:40)
[2017-01-12] MEDS: ASCORBIC ACID 500 MG TAB PO SCH ×2 (11:40→21:46)
[2017-01-12] MEDS: FINASTERIDE 5 MG TAB PO SCH (11:40)
[2017-01-12] MEDS: DOCUSATE SOD 100 MG CAP PO SCH ×2 (11:40→21:46)
[2017-01-12] MEDS: AMIODARONE HCL 200 MG TAB PO SCH ×2 (11:41→21:46)
[2017-01-12 13:00] VITALS: BP 104/68
[2017-01-12 17:00] VITALS: BP 113/54
[2017-01-12] MEDS: RIVAROXABAN 20 MG TAB PO SCH (18:13)
[2017-01-12 22:00] VITALS: BP 96/44
[2017-01-13 05:00] VITALS: BP 94/51
[2017-01-13] MEDS: CARBIDOPA W LEVODOPA 25/100mg TABLET PO SCH ×3 (06:18→21:47)
[2017-01-13 06:37] LABS: Basophils # (auto) 0.1 uL; Basophils % (auto) 0.6 % (0.0-2.0); Eosinophils # (auto) 0.2 uL; Eosinophils % (auto) 1.7 % (0.0-7.0); Hematocrit 26.5 % (41.0-53.0); Hemoglobin 9.1 g/dL (13.5-17.5); Lymphocytes # (auto) 0.7 uL; Lymphocytes % (auto) 6.4 % (10.0-50.0); Mean Corpuscular Hemoglobin 32.3 pg (28.0-32.0); Mean Corpuscular Hgb Conc. 34.3 g/dL (32.0-36.0); Mean Corpuscular Volume 94.3 fL (80.0-100.0); Mean Platelet Volume 6.5 fL (7.4-10.4); Monocytes # (auto) 0.8 uL; Monocytes % (auto) 7.3 % (0.0-12.0); Neutrophils # (auto) 8.9 uL; Nucleated Red Blood Cells % 0.1 %; Platelet Count (auto) 343 10^3/uL (140-450); Red Cell Distribution Width 15.6 % (11.6-16.0); White Blood Cell 10.7 10^3/uL (4.4-10.8)
[2017-01-13 06:54] LABS: Calcium 8.7 mg/dL (8.5-10.1); Potassium 4.2 mmol/L (3.5-5.1)
[2017-01-13 06:56] LABS: Albumin 2.3 g/dL (3.4-5.0); BUN/Creatinine Ratio 26.7
[2017-01-13 06:59] LABS: Bilirubin, Total 0.3 mg/dL (0.2-1.0); Total Protein 6.1 g/dL (6.4-8.2)
[2017-01-13] MEDS: Boost Glucose Control 8 Ounces PO SCH ×2 (08:00→18:23)
[2017-01-13] MEDS: PRO-STAT 64 30ML PO SCH ×2 (08:00→18:00)
[2017-01-13 09:05] VITALS: BP 100/60
[2017-01-13] MEDS: RASAGILINE MESYLATE 0.5 MG PO SCH (10:00)
[2017-01-13] MEDS: CARVEDILOL 3.125 MG TAB PO SCH ×2 (10:00→21:47)
[2017-01-13] MEDS: PANTOPRAZOLE 40 MG TAB PO SCH (11:16)
[2017-01-13] MEDS: FINASTERIDE 5 MG TAB PO SCH (11:16)
[2017-01-13] MEDS: ASCORBIC ACID 500 MG TAB PO SCH ×2 (11:16→21:47)
[2017-01-13] MEDS: MULTIPLE VITAMIN TAB PO SCH (11:16)
[2017-01-13] MEDS: DOCUSATE SOD 100 MG CAP PO SCH ×2 (11:16→21:46)
[2017-01-13] MEDS: AMIODARONE HCL 200 MG TAB PO SCH ×2 (11:17→21:46)
[2017-01-13 13:58] VITALS: BP 106/51
[2017-01-13 16:52] VITALS: BP 100/56
[2017-01-13] MEDS: RIVAROXABAN 20 MG TAB PO SCH (18:24)
[2017-01-13 22:27] VITALS: BP 117/58
[2017-01-14 05:01] VITALS: BP 109/59
[2017-01-14] MEDS: CARBIDOPA W LEVODOPA 25/100mg TABLET PO SCH ×2 (05:35→14:00)
[2017-01-14] MEDS: PRO-STAT 64 30ML PO SCH (08:00)
[2017-01-14] MEDS: Boost Glucose Control 8 Ounces PO SCH (08:00)
[2017-01-14 09:00] VITALS: BP_SYST 108; BP_SYST 111; BP_DIAS 57; BP_DIAS 94
[2017-01-14] MEDS: CARVEDILOL 3.125 MG TAB PO SCH (10:00)
[2017-01-14] MEDS: RASAGILINE MESYLATE 0.5 MG PO SCH (10:00)
[2017-01-14] MEDS: MULTIPLE VITAMIN TAB PO SCH (10:38)
[2017-01-14] MEDS: PANTOPRAZOLE 40 MG TAB PO SCH (10:38)
[2017-01-14] MEDS: DOCUSATE SOD 100 MG CAP PO SCH (10:38)
[2017-01-14] MEDS: ASCORBIC ACID 500 MG TAB PO SCH (10:38)
[2017-01-14] MEDS: AMIODARONE HCL 200 MG TAB PO SCH (10:39)
[2017-01-14] MEDS: FINASTERIDE 5 MG TAB PO SCH (10:39)
[2017-01-14 13:00] VITALS: BP 111/57
[2017-01-14 15:19] VITALS: BP 111/57
[2017-01-20] MEDS ORDERED: RIVAROXABAN 20 MG TAB PO SCH (18:00)
== END 2017-01-14 16:20 | DRG 175 ==
LOC: ER 08:56 → EDBD 08:56 → TELE 08:57 → TELE-WESTW 20:12
PROVIDERS: ADMIT Internal Medicine; ATTEND Internal Medicine
PROC: 30233N1 Transfusion of Nonautologous Red Blood Cells into Peripheral Vein, Percutaneous Approach (ICD-10-PCS; principal; 2017-01-04)
DX: I26.99 Other pulmonary embolism without acute cor pulmonale (principal); G93.41 Metabolic encephalopathy; E43 Unspecified severe protein-calorie malnutrition; E11.22 Type 2 diabetes mellitus with diabetic chronic kidney disease; G20 Parkinson's disease; I13.10 Hypertensive heart and chronic kidney disease without heart failure, with stage 1 through stage 4 chronic kidney disease, or unspecified chronic kidney disease; I27.2 Other secondary pulmonary hypertension; J98.11 Atelectasis; I48.91 Unspecified atrial fibrillation; E78.5 Hyperlipidemia, unspecified; I70.0 Atherosclerosis of aorta; N18.9 Chronic kidney disease, unspecified; E78.00 Pure hypercholesterolemia, unspecified; D64.9 Anemia, unspecified; I35.0 Nonrheumatic aortic (valve) stenosis; R31.0 Gross hematuria; R32 Unspecified urinary incontinence; Z79.01 Long term (current) use of anticoagulants; Z86.711 Personal history of pulmonary embolism; Z92.21 Personal history of antineoplastic chemotherapy; Z85.038 Personal history of other malignant neoplasm of large intestine; Z85.46 Personal history of malignant neoplasm of prostate; Z85.820 Personal history of malignant melanoma of skin; Z90.79 Acquired absence of other genital organ(s); Z90.49 Acquired absence of other specified parts of digestive tract; Z95.0 Presence of cardiac pacemaker; Z68.20 Body mass index [BMI] 20.0-20.9, adult
CPT/HCPCS: 36415; 70450; 71010; 71275; 80048; 80053; 80320; 82550; 82607; 82746; 83605; 83735; 84439; 84443; 84484; 85025; 85379; 85610; 85652; 85730; 86141; 86850; 86900; 86901; 86920; 87040; 87045; 87081; 87899; 93005; 93306; 95819; 97110; 97116; 97530; J0696

== ENCOUNTER 2017-04-14 23:33 | Emergency (ER) | payer MEDICARE, OTHER ==
[~2017-04-14] VITALS: Ht 177.8 cm; Wt 72.6 kg
[~2017-04-14 23:33] MED LIST changes: -ATEN-60 OR; -DILT-11 OR; -DILT120C45 OR; +METO25TA62 PO
[2017-04-15 02:01] VITALS: BP 153/76
[2017-04-15] MEDS ORDERED: ALBUTEROL SULF 2.5 MG/0.5ML(0.5%) NEB SOLN NEB ONE (05:00)
[2017-04-15] MEDS ORDERED: IPRATROPIUM BROM 0.5 MG/2.5ML INH SOL NEB ONE (05:00)
== END 2017-04-15 11:43 | disposition expired ==
LOC: EDBD 23:33 → ER 23:33
DX: R53.1 Weakness (principal); C79.82 Secondary malignant neoplasm of genital organs; C18.9 Malignant neoplasm of colon, unspecified; C80.1 Malignant (primary) neoplasm, unspecified; I12.9 Hypertensive chronic kidney disease with stage 1 through stage 4 chronic kidney disease, or unspecified chronic kidney disease; N18.9 Chronic kidney disease, unspecified; E78.5 Hyperlipidemia, unspecified; I48.91 Unspecified atrial fibrillation; Z95.0 Presence of cardiac pacemaker; Z66 Do not resuscitate
CPT/HCPCS: 70450; 71010; 87040; 93005